=== PATIENT | male | born 1985 | race African-American/Black ===

== ENCOUNTER 2017-08-30 09:09 | Emergency (ER) | payer OTHER ==
[~2017-08-30] VITALS: Ht 182.9 cm; Wt 88.5 kg
[2017-08-30 09:14] VITALS: BP 141/86
== END 2017-08-30 10:01 | disposition home or self-care (01) ==
LOC: ER 09:09
DX: M62.830 Muscle spasm of back (principal); M54.6 Pain in thoracic spine